=== PATIENT | female | born 1935 | race Caucasian/White ===

== ENCOUNTER → 2017-04-04 | Outpatient (CLI) | payer OTHER | LOC: M.ULTRA 11:00 | DX: I65.23 Occlusion and stenosis of bilateral carotid arteries (principal) ==

== ENCOUNTER → 2017-06-29 | Outpatient (CLI) | payer OTHER | LOC: M.RAD 12:16 | DX: M19.012 Primary osteoarthritis, left shoulder (principal); M19.011 Primary osteoarthritis, right shoulder; Z88.6 Allergy status to analgesic agent; Z88.5 Allergy status to narcotic agent; Z88.8 Allergy status to other drugs, medicaments and biological substances ==

== ENCOUNTER → 2017-09-14 | Outpatient (CLI) | payer OTHER | LOC: M.MRI 15:47 | DX: M75.101 Unspecified rotator cuff tear or rupture of right shoulder, not specified as traumatic (principal); M25.411 Effusion, right shoulder; M75.21 Bicipital tendinitis, right shoulder; G89.29 Other chronic pain; M25.512 Pain in left shoulder ==

== ENCOUNTER → 2019-03-15 | Outpatient (CLI) | payer MEDICARE | LOC: M.RAD 14:24 | DX: S22.31XA Fracture of one rib, right side, initial encounter for closed fracture (principal); S22.040D Wedge compression fracture of fourth thoracic vertebra, subsequent encounter for fracture with routine healing; M48.54XA Collapsed vertebra, not elsewhere classified, thoracic region, initial encounter for fracture; M48.04 Spinal stenosis, thoracic region; M25.78 Osteophyte, vertebrae; Z96.612 Presence of left artificial shoulder joint; X58.XXXA Exposure to other specified factors, initial encounter; Y93.89 Activity, other specified; Y92.89 Other specified places as the place of occurrence of the external cause; Y99.8 Other external cause status ==

== ENCOUNTER 2019-09-08 18:37 | Inpatient (IN) | payer MEDICARE ==
[~2019-09-08] VITALS: Ht 157.5 cm; Wt 73.5 kg
[2019-09-08 18:50] VITALS: BP 129/57
[2019-09-08] MEDS ORDERED: SIMVASTATIN80 MG PO (18:58)
[2019-09-08] MEDS ORDERED: TOPROL XL25 MG PO (18:59)
[2019-09-08] MEDS ORDERED: NORVASC 2.5 MG2.5 M1 PO (18:59)
[2019-09-08] MEDS ORDERED: PROTONIX40 M4 PO (19:00)
[2019-09-08] MEDS ORDERED: ASA81BEC PO (19:00)
[2019-09-08] MEDS ORDERED: TRIAMTERENE/HCT1 CA1 PO (19:00)
[2019-09-08] MEDS ORDERED: COZAAR 25 MG TA25 M2 PO (19:01)
[2019-09-08] MEDS ORDERED: VITAMIN E1000 UNIT PO (19:01)
[2019-09-08] MEDS ORDERED: FISH OIL 1,0001 EAC9 PO (19:01)
[2019-09-08] MEDS ORDERED: OMEGA-3 FLAXS1000 MG PO (19:01)
[2019-09-08] MEDS ORDERED: COQ-10100 MG PO (19:01)
[2019-09-08] MEDS ORDERED: B12 ACTIVE1000 MCG PO (19:02)
[2019-09-08] MEDS ORDERED: BIOTIN1000 MCG PO (19:02)
[2019-09-08 19:07] LABS: URINE BLOOD TRACE (Negative); URINE CLARITY CLEAR; URINE COLOR YELLOW; URINE GLUCOSE-RANDOM NEGATIVE (Negative); URINE KETONES NEGATIVE (Negative); URINE LEUKOCYTES NEGATIVE (Negative); URINE NITRITE NEGATIVE (Negative); URINE PROTEIN NEGATIVE (Negative); URINE UROBILINOGEN 0.2 E.U./dl (0.2-1.0)
[2019-09-08 19:09] LABS: ICTOTEST (BILI CONFIRMATORY) Negative (Negative); URINE BILIRUBIN 1+ (Negative)
[2019-09-08 19:17] LABS: ABSOLUTE BASOPHILS 0.1 thou/uL (0.0-0.2); ABSOLUTE LYMPHOCYTES 1.5 thou/uL (0.8-5.3); ABSOLUTE MONOCYTES 0.8 thou/uL (0.0-1.2); ABSOLUTE NEUTROPHILS 6.5 thou/uL (1.6-8.1); BASOPHILS 1.1 %; EOSINOPHILS 0.5 %; HEMATOCRIT 33.5 % (37.0-47.0); HEMOGLOBIN 11.5 gm/dL (12.0-15.0); LYMPHOCYTES 17.1 %; MCH 31.1 pg (26.0-34.0); MCHC 34.5 g/dL (28.0-37.0); MCV 90.1 fL (80.0-100.0); MONOCYTES 9.1 %; MPV 9.8 fl. (7.2-11.1); NUCLEATED RBCS 0 /100WBC; PLATELET COUNT* 180 thou/uL (150-400); POLYS 72.2 %; RBC 3.71 mil/uL (4.20-5.00); RDW-CV 13.7 % (10.5-14.5)
[2019-09-08 19:25] LABS: CALCIUM 8.7 mg/dL (8.5-10.1); CREATININE 1.1 mg/dL (0.6-1.3); POTASSIUM 4.1 mmol/L (3.5-5.1)
[2019-09-08 19:29] LABS: ALBUMIN 3.7 g/dL (3.4-5.0); TOTAL BILIRUBIN 0.4 mg/dL (<0.1-1.0); TOTAL PROTEIN 7.1 g/dL (6.4-8.2)
[2019-09-08 23:37] VITALS: BP 125/70
[2019-09-09] VITALS: BP 165/54
--- NOTE | 2019-09-09 01:25 | NUR ---
0000: ALERT AND ORIENTED X 4 FEMALE PATIENT TO ROOM 114 BY CART IN STABLE CONDITION. ADMISSION ROUTINES IN PROGRESS. VITAL SIGNS STABLE. HOME MEDICATION LIST UPDATED AND WITH REQUEST FOR TYLENOL PM FOR REST TONIGHT. ORDER WAS RECEIVED. CONTINUE TO MONITOR.
--- NOTE | 2019-09-09 04:09 | NUR ---
PATIENT HAS REMAINED ALERT AND ORIENTED X 4 THROUGHOUT THE SHIFT AND RESTING QUIETLY ON HOURLY ROUNDS. PROVIDED WITH A SLEEP AID AFTER ADMISSION ASSSESSMENT COMPLETE. AT 0330 SHE WAS AWAKE AND STATED IT WAS HELPING. NO REQUIREMENT FOR PAIN OR NAUSEA MEDICATION SINCE ARRIVAL TO UNIT. IVF'S PER ORDER. TAKING SIPS WATER AT BEDSIDE. GI CONSULT THIS AM. OF NOTE SHE STATES SHE HAS NEVER HAD A GI PHYSICIAN ATTEND TO HER AND IS HOPEFUL THERE WILL BE SOME NEW PLANS THAT WILL HELP HER IBS AND NEED FOR LAXATIVES TO HAVE A BM. SHE STATES THE ONLY LAXATIVE THAT HAS WORKED IS EX-LAX. CONTINUE TO MONITOR.
[2019-09-09 07:45] VITALS: BP 135/43
[2019-09-09 15:00] VITALS: BP 134/41
--- NOTE | 2019-09-09 15:27 | NUR ---
SPOKE WITH PT. DAUGHTER,CHET WAS VISITING. CHET DOES NOT LIVE WITH PT. SHE SAID SHE USES MOM'S ADDRESS HER MAILING ADDRESS. PT.SAID SHE LIVES ALONE. NO USE OF DME. SHE IS INDEPENDENT. DRIVES,SHOPS,DOES LAUNDRY,ETC. SHE USED A HH AGENCY AFTER HER KNEE REPLACEMENTS BUT IT WAS AWHILE AGO AND SHE CAN'T REMEMBER NAME OF AGENCY. SHE SAID SHE INTENDS TO GO HOME AT DISCHARGE.
--- NOTE | 2019-09-09 17:37 | NUR ---
PATIENT RESTED IN BED MOST OF THE DAY. SHE HAD HER DAUGHTER HERE MOST OF THE MORNING AND INTO THE EARLY AFTERNOON. SHE HAS NOT HAD ANY COMPLAINTS TODAY. SHE IS ON CLEAR LIQUIDS AND TOLERATES THEM WELL. HER VITAL SIGNS HAVE BEEN STABLE AND HER FLUIDS CONTINUE TO INFUSE INTO THE LEFT AC. SHE DENIES ANY NEEDS OR WANTS AND IS CURRENTLY WATCHING TV. NO DISTRESS TODAY.
[2019-09-09 20:30] VITALS: BP 146/58
[2019-09-10] VITALS (7 sets, daily range): BP systolic 146–168; BP diastolic 53–61
--- NOTE | 2019-09-10 02:50 | NUR ---
0145 PATIENT CALLED FROM ROOM STATING SHE WAS HAVING CHEST PAIN UNDER HER LEFT BREAST AFTER A TRIP TO THE AND FELT LIKE HER HEART WAS RACING. IMMEDIATE AUSCULTATION OF HEART WITH RATE REGULAR AND 74 BMP. PATIENT DENIES ANY RADIATION OF PAIN OR SHORTNESS OF AIR. BP 168/60. EKG COMPLETED WITH RESULTS SINUS RHYTHM. O2 SAT 92-95%. O2 APPLIED AT 1L/MIN. BY THE TIME ASSESSMENT AND EKG COMPLETED PATIENT STATING DISCOMFORT RESOLVED. MESSAGE SENT AND RECEIVED BY DR. CORNELL AT 0226. NO NEW ORDERS. WILL REASSESS WITH 0400 VITAL SIGNS AND UPDATE PHYSICIAN NEEDED. CONTINUE TO MONITOR.
--- NOTE | 2019-09-10 05:32 | NUR ---
PATIENT HAS REMAINED ALERT AND ORIENTED X 4 THROUGHOUT THE SHIFT AND RESTING QUIETLY ON HOURLY ROUNDS. NO FURTHER REPORTS OF DISCOMFORT IN EVENT NOTE EARLIER. FLUIDS AND ANTIBIOTICS PER ORDER. VITAL SIGNS STABLE. HAS DECLINED ALL OFFERS OF PAIN OR NAUSEA MEDICTION. NO BM'S TONIGHT. CONTINUE TO MONITOR.
--- NOTE | 2019-09-10 09:55 | EKG ---
[place] [address] ELECTROCARDIOGRAM REPORT Name: SOLOMON MORFIN Room: [address] ADM IN M.R.#: [id number] Admission: 09/08/19 Attend Phys: Jasmine Gee Discharge: Date of : 31 Date of Service: 09/10/19 0155 Report #: [id number] THIS REPORT FOR: //name// 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1935 Requested By: Simon Woodard Order Number: [id number] Ramiro MD: Klaus Fisher Measurements Intervals [place] Rate: 69 P: 63 WI: 150 QRS: 35 QRSD: 94 T: 5 QT: 392 QTc: 420 Interpretive Statements Sinus rhythm Probable left atrial enlargement Low voltage, precordial leads No previous ECG available for comparison Electronically Signed On 09-10-2019 9:55:30 CDT by Klaus Fisher [email or web address] <ELECTRONICALLY SIGNED> By: Klaus Fisher MD, [facility] 09/10/19 0955 0155 0155 Klaus Fisher MD, [facility] /EPI
--- NOTE | 2019-09-10 13:24 | CON ---
[address] [address] CONSULTATION Name: SOLOMON MORFIN Room: [address] IN .R.#: [id number] Admission: 09/08/19 Attend Phys: Flaca Bobby Discharge: Date of : 31 Report #: [id number] THIS REPORT FOR: //name// cc: Gabriel Loja MD, Dean L. MD ~ THIS REPORT FOR: //name// CC: Gabriel Gee DICTATED BY: Kandis Funez CRYSTAL GAZER DATE OF SERVICE: 09/09/2019 Please note at the time of this dictation, the patient was seen and physically examined by myself. REASON FOR CONSULTATION: Abdominal pain, constipation, diverticulitis. HISTORY OF PRESENT ILLNESS: This is an 84-year-old female who presented to the Emergency Room with worsening of abdominal cramping that started the day of admission. She states she had taken a laxative the day before, which she has to do about every 3 days to have a bowel movement and she states the cramping this time was much more intense than usual. She denies any nausea or vomiting associated with this and she usually takes Ex-Lax for her bowels at this time. She did have some diarrhea prior to coming in from the laxative and then again last night after she was here. The patient states she has tried numerous things in the past including MiraLax and multiple other laxatives. She does admit that she does not drink much water throughout the day. The patient was last seen by us in 2011. She had an EGD. She has a history of some esophagitis and hiatal hernia and in 2010 was her last colonoscopy, noting diverticulosis in the sigmoid colon and some hemorrhoids. ALLERGIES: No known drug allergies. MEDICATIONS: From home include simvastatin, amlodipine, metoprolol, pantoprazole, hydrochlorothiazide/triamterene, aspirin, losartan, vitamin E, Coenzyme Q10, flaxseed, fish oil, B12 and biotin. PAST MEDICAL HISTORY: Hypertension, GERD, and high cholesterol. PAST SURGICAL HISTORY: Left shoulder repair. FAMILY HISTORY: Negative for any GI [place] [address] CONSULTATION Name: SOLOMON MORFIN Rita Room: [address]#: [id number] Admission: 09/08/19 Attend Phys: Flaca Bobby Discharge: Date of : 31 Report #: [id number] SOCIAL HISTORY: Denies any tobacco or alcohol use. REVIEW OF SYSTEMS: Twelve-point review of systems is essentially negative except what is mentioned in the HPI. PHYSICAL EXAMINATION: VITAL SIGNS: Temperature 36.7, pulse 57, respirations 18, blood pressure 135/43. HEART: Regular rate and rhythm. LUNGS: Clear. ABDOMEN: Soft, positive bowel sounds in all 4 quadrants with some tenderness noted in the lower abdominal region, both left and right. LABORATORY DATA: Labs reveal hemoglobin 11.5, white count is 9, and platelet is 480. GFR is 47. CT showed thickening of the distal descending colon with pericolic fat and inflammation noted. IMPRESSION: 1. Abdominal pain. 2. Constipation. 3. Diverticulitis. 4. Chronic kidney disease. PLAN: 1. Continue her antibiotics and Flagyl. 2. Senna 2 tablets b.i.d. 3. Increase her oral intake of fluids. 4. We will await results of above. Thank you for allowing us to participate in this patient's care. Please do not hesitate to call with any questions in regard to this consult. Agree with above assessment and plan by Kandis Funez. Iron Wetzel MD <ELECTRONICALLY SIGNED> By: Iron Wetzel MD 09/10/19 1324 1103 1130Iron Wetzel MD /nt
--- NOTE | 2019-09-10 17:22 | NUR ---
PATIENT VISITED MOST OF THE DAY WITH HER DAUGHTER. SHE WAS UP AD HARPREET IN THE ROOM AND DENIED PAIN ALL DAY. SHE HAD HER DIET ADVANCED THIS PM AND TOLERATED IT WELL. I DID RESTART HER IV IN THE RIGHT HAND WITH A 20G BECAUSE THE OTHER ONE WAS LEAKING. SHE TOLERATED VERY WELL. HER ANTIBIOTICS WERE ADMINISTERED ORDERED TODAY. SHE WILL BE GOING HOME TOMORROW AND IS VERY HAPPY ABOUT THAT. NO DISTRESS NOTED TODAY. DENIES ANY NEEDS OR WANTS AT THIS TIME.
--- NOTE | 2019-09-11 04:33 | NUR ---
PT A&OX4, ON ROOM AIR, UP AD HARPREET, VSS, IV FLUIDS INFUSING ORDERED. PAIN MED REQUESTED AND GIVEN ORDERED. PT SLEEPING WELL. ASSESSMENTS AND HOURLY ROUNDINGS COMPLETE, WILL CONTINUE WITH PLAN OF CARE.
[2019-09-11 07:50] VITALS: BP 170/54
[2019-09-11] MEDS ORDERED: FLAGYL500 M1 PO (10:29)
[2019-09-11] MEDS ORDERED: CIPRO500 MG PO (10:29)
[2019-09-11] MEDS ORDERED: SENOKOT-S1 TA2 PO (11:11)
--- NOTE | 2019-09-11 12:06 | NUR ---
PATIENT DISCHARGED TO HOME AT THIS TIME. IV ABX INFUSED PRIOR TO DISCHARGE. IV DC'D. UP AD HARPREET. SEEN BY GI AND OK TO DC HOME. PATIENT TAKEN OUT VIA WHEELCHAIR WITH ALL BELONGINGS.
== END 2019-09-11 12:07 | disposition home or self-care (01) | DRG 392 ==
LOC: M.ERS 18:37 → M.TBA-ER 22:37 → M.ORTHSURG 22:37
PROVIDERS: Nurse Practitioner Family; ADMIT Internal Medicine; ATTEND Internal Medicine
DX: K57.92 Diverticulitis of intestine, part unspecified, without perforation or abscess without bleeding (principal); E87.1 Hypo-osmolality and hyponatremia; K58.1 Irritable bowel syndrome with constipation; K21.9 Gastro-esophageal reflux disease without esophagitis; E78.00 Pure hypercholesterolemia, unspecified; I12.9 Hypertensive chronic kidney disease with stage 1 through stage 4 chronic kidney disease, or unspecified chronic kidney disease; N18.9 Chronic kidney disease, unspecified; Z96.653 Presence of artificial knee joint, bilateral; E78.5 Hyperlipidemia, unspecified; Z79.899 Other long term (current) drug therapy; Z79.82 Long term (current) use of aspirin; Z03.818 Encounter for observation for suspected exposure to other biological agents ruled out

== ENCOUNTER 2019-10-02 03:45 | Emergency (ER) | payer MEDICARE ==
[~2019-10-02] VITALS: Ht 157.5 cm; Wt 72.6 kg
[~2019-10-02 03:45] MED LIST: ASA81BEC PO; B12 ACTIVE1000 MCG PO; BIOTIN1000 MCG PO; CIPRO500 MG PO; COQ-10100 MG PO; COZAAR 25 MG TA25 M2 PO; FISH OIL 1,0001 EAC9 PO; FLAGYL500 M1 PO; NORVASC 2.5 MG2.5 M1 PO; OMEGA-3 FLAXS1000 MG PO; PROTONIX40 M4 PO; SENOKOT-S1 TA2 PO; SIMVASTATIN80 MG PO; TOPROL XL25 MG PO; TRIAMTERENE/HCT1 CA1 PO; VITAMIN E1000 UNIT PO
[2019-10-02] MEDS ORDERED: DIFLUCAN150 MG PO (04:20)
[2019-10-02 04:35] VITALS: BP 142/68
== END 2019-10-02 04:35 | disposition home or self-care (01) ==
LOC: M.ERS 03:45
DX: B37.0 Candidal stomatitis (principal); K58.9 Irritable bowel syndrome, unspecified; Z96.653 Presence of artificial knee joint, bilateral

== ENCOUNTER 2020-06-15 09:33 | Observation (INO) | payer MEDICARE ==
[~2020-06-15] VITALS: Ht 165.1 cm; Wt 71.2 kg
[~2020-06-15 09:33] MED LIST changes: +DIFLUCAN150 MG PO
[2020-06-15 09:41] VITALS: BP 143/48
[2020-06-15 10:04] LABS: ABSOLUTE BASOPHILS 0.1 thou/uL (0.0-0.2); ABSOLUTE EOSINOPHILS 0.1 thou/uL (0.0-0.7); ABSOLUTE LYMPHOCYTES 1.9 thou/uL (0.8-5.3); ABSOLUTE MONOCYTES 0.5 thou/uL (0.0-1.2); ABSOLUTE NEUTROPHILS 1.9 thou/uL (1.6-8.1); BASOPHILS 1.5 %; EOSINOPHILS 1.1 %; HEMATOCRIT 37.7 % (37.0-47.0); HEMOGLOBIN 12.6 gm/dL (12.0-15.0); LYMPHOCYTES 42.7 %; MCH 30.6 pg (26.0-34.0); MCHC 33.5 g/dL (28.0-37.0); MCV 91.5 fL (80.0-100.0); MONOCYTES 11.2 %; MPV 9.2 fl. (7.2-11.1); NUCLEATED RBCS 0 /100WBC; PLATELET COUNT* 165 thou/uL (150-400); POLYS 43.5 %; RBC 4.12 mil/uL (4.20-5.00); RDW-CV 13.8 % (10.5-14.5); WBC 4.5 thou/uL (4.0-11.0)
[2020-06-15 10:16] LABS: CREATININE 1.2 mg/dL (0.6-1.3); POTASSIUM 3.9 mmol/L (3.5-5.1)
[2020-06-15 10:26] LABS: APTT 26.2 Seconds (25.0-31.3); PROTIME 10.3 Seconds (9.20-11.50)
[2020-06-15 10:31] LABS: TOTAL BILIRUBIN 0.5 mg/dL (<0.1-1.0); TOTAL PROTEIN 7.4 g/dL (6.4-8.2)
--- NOTE | 2020-06-15 11:26 | EKG ---
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
[2020-06-15 12:10] VITALS: BP 146/53
[2020-06-15 12:22] VITALS: BP 162/66
[2020-06-15 12:40] VITALS: BP 162/66
[2020-06-15 15:00] VITALS: BP 135/48
--- NOTE | 2020-06-15 16:10 | NUR ---
PT ADMITTED TO ROOM 213 FROM ED WITH VENTRICULAR BIGEMINY AND SYNCOPE. PT REPORTS THAT SHE HAS HAD EPISODES AT HOME WHERE SHE WILL BECOME DIZZY DURING ACTIVITIES.PT IS ORTHOSTATIC POSITIVE.AOX4,ABLE TO ANSWER QUESTIONS APPROPRIATELY. OTHERWISE STABLE ON RA. TRIGEMINY/BIGEMINY ON MONITOR.CARDIOLOGY CONSULTED. PT ORIENTED TO PLAN OF CARE,TREATMENTS,ACTIVITY,DIET AND FALL PRECAUTIONS. NOTHING FURTHER.CLWR.WCTM
[2020-06-16 00:34] VITALS: BP 145/57
[2020-06-16 04:58] VITALS: BP 121/50
[2020-06-16 06:01] LABS: HEMOGLOBIN 11.5 gm/dL (12.0-15.0); MCH 30.8 pg (26.0-34.0); MCHC 33.9 g/dL (28.0-37.0); MCV 90.9 fL (80.0-100.0); MPV 9.3 fl. (7.2-11.1); RBC 3.74 mil/uL (4.20-5.00); RDW-CV 13.4 % (10.5-14.5); WBC 4.4 thou/uL (4.0-11.0)
[2020-06-16 06:19] LABS: ANION GAP 8 mmol/L (7-16); BUN 16 mg/dL (7-18); CALCIUM 9.3 mg/dL (8.5-10.1); CHLORIDE 97 mmol/L (98-107); CHOLESTEROL 187 mg/dL (<200); CO2 26 mmol/L (21-32); CREATININE 0.8 mg/dL (0.6-1.3); GLUCOSE 100 mg/dL (70-99); HDL CHOLESTEROL 98 mg/dL (>40); LDL CHOLESTEROL 79 mg/dL (<100); POTASSIUM 3.6 mmol/L (3.5-5.1); SODIUM 131 mmol/L (136-145); TC:HDL 1.9 Ratio (Not establshd); TRIGLYCERIDE 52 mg/dL (<150); VLDL 10 mg/dL (<40)
[2020-06-16 06:20] LABS: SERUM ASSESSMENT Clear
--- NOTE | 2020-06-16 06:28 | NUR ---
NO ACUTE CHANGES THROUGHOUT SHIFT. SEE CHARTING FOR DETAILS.
--- NOTE | 2020-06-16 07:10 | NUR ---
CHANGE OF SHIFT, BEDSIDE REPORT GIVEN PATIENT SEEN AT BEDSIDE, IN BED RESTING ASSUMED PATIENT CARE
[2020-06-16 08:00] VITALS: BP 103/46
--- NOTE | 2020-06-16 12:55 | 2DMMODE ---
[place] [address] 2 D/M-MODE ECHOCARDIOGRAM Name: MORFINSOLOMON Jackman Rita Room: [address] M.R.#: [id number] Admission: 06/15/20 Attend Phys: Kristin Gaxiola MD Discharge: Date of : 31 Date of Service: 06/16/20 1254 Report #: [id number] THIS REPORT FOR: cc: Gabriel Loja MD, Dean L. MD Liston, Michael J. MD [facility] ~ APPROVED REPORT Study performed: 06/16/2020 10:38:50 EXAM: Comprehensive 2D, Doppler, and color-flow Echocardiogram Patient Location: In-Patient Room #: [facility] Status: routine BSA: 1.76 HR: 63 bpm BP: 103/46 mmHg Rhythm: NSR Other Information Study Quality: Good Indications Abnormal ECG 2D Dimensions IVSd: 9.56 (7-11mm) LVOT Diam: 19.49 (18-24mm) LVDd: 43.68 mm PWd: 8.62 (7-11mm) Ascending Ao: 27.28 (22-36mm) LVDs: 23.19 (25-40mm) Aortic Root: 29.03 mm Volumes Left Atrial Volume (Systole) LA ESV Index: 29.40 mL/m2 Aortic Valve AoV Peak Zeferino.: 1.60 m/s AO Peak Gr.: 10.25 mmHg LVOT Max P.25 mmHg AO Mean Gr.: 5.70 mmHg LVOT Mean P.68 mmHg LVOT Max V: 1.25 m/s AO V2 VTI: 35.41 cm LVOT Mean V: 0.73 m/s ELSIE (VTI): 2.37 cm2 LVOT V1 VTI: 28.16 [place] [address] 2 D/M-MODE ECHOCARDIOGRAM Name: SOLOMON MORFIN Room: [address] M.R.#: [id number] Admission: 06/15/20 Attend Phys: Kristin Gaxiola MD Discharge: Date of : 31 Date of Service: 06/16/20 1254 Report #: [id number] Mitral Valve E/A Ratio: 0.60 MV Decel. Time: 203.05 ms MV E Max Zeferino.: 0.85 m/s MV PHT: 58.88 ms MVA (PHT): 3.74 cm2 TDI E/Lateral E': 10.63 E/Medial E': 10.63 Medial E' Zeferino.: 0.08 m/s Lateral E' Zeferino.: 0.08 m/s Pulmonary Valve PV Peak Zeferino.: 1.08 m/s PV Peak Gr.: 4.67 mmHg Tricuspid Valve RAP Estimate: 5.00 mmHg TR Peak Gr.: 42.07 mmHg RVSP: 47.00 mmHg PA Pressure: 47.00 mmHg Left Ventricle The left ventricle is normal size. There is normal LV segmental wall motion. There is normal left ventricular wall thickness. Left ventricular systolic function is normal. LVEF is 65-70%. Transmitral Doppler flow pattern suggests impaired LV relaxation. Right Ventricle The right ventricle is normal size. The right ventricular systolic function is normal. Atria The left atrium size is normal. The right atrium size is normal. Aortic Valve The aortic valve is normal in structure. No aortic regurgitation is present. There is no aortic valvular stenosis. Mitral Valve The mitral valve is normal in structure. Trace mitral regurgitation. No evidence of mitral valve stenosis. Tricuspid Valve The tricuspid valve is normal in structure. Mild tricuspid regurgitation. The RVSP is 45-[place] [address] 2 D/M-MODE ECHOCARDIOGRAM Name: SOLOMON MORFIN Room: [address]#: [id number] Admission: 06/15/20 Attend Phys: Kristin Gaxiola MD Discharge: Date of : 31 Date of Service: 06/16/20 1254 Report #: [id number] Pulmonic Valve The pulmonary valve is normal in structure. There is no pulmonic valvular regurgitation. Great Vessels The aortic root is normal in size. IVC is normal in size and collapses >50% with inspiration. Pericardium There is no pericardial effusion. <Conclusion> The left ventricle is normal size. There is normal left ventricular wall thickness. Left ventricular systolic function is normal. LVEF is 65-70%. Transmitral Doppler flow pattern suggests impaired LV relaxation. Trace mitral regurgitation. Mild tricuspid regurgitation. The RVSP is 45-50 mmHg. IVC is normal in size and collapses >50% with inspiration. <ELECTRONICALLY SIGNED> By: Zoltan Stone MD, FACC 06/16/20 1254 1254 1254 Zoltan Stone MD, FACC /INF
--- NOTE | 2020-06-16 13:38 | CON ---
[address] [address] CONSULTATION Name: SOLOMON MORFIN Room: [address] Meena Bernabe#: [id number] Admission: 06/15/20 Attend Phys: Kristin Gaxiola MD Discharge: Date of : 31 Report #: [id number] THIS REPORT FOR: cc: Gabriel Loja MD, Dean L. MD Blick,Klaus Aleman MD [facility] ~ DATE OF SERVICE: 06/15/2020 CARDIOLOGY CONSULTATION HISTORY OF PRESENT ILLNESS: The patient is an 84-year-old single white female who I was asked to see in the hospital today after she complained of lightheadedness and palpitations. The patient has no previous history of heart disease. She does state that I actually saw her in the Cardiology Clinic prior to shoulder surgery in the past. She apparently had a stress test that showed no evidence of heart disease. She denies a history of a myocardial infarction or chest pain. She stays very active and denies a history of exertional dyspnea. Recently, however, she notes her heart will race. It will skip beats. It feels like it is beating fast. She also notes she has had lightheaded spells. She feels dizzy as if she is going to fall. She has to hold on to things. She denied any syncope or heart murmur. She finally came to the hospital today and is admitted for further evaluation and treatment. PAST MEDICAL HISTORY: He has had previous knee surgery, shoulder surgery, hernia repair. She has a history of hypertension, hyperlipidemia. No diabetes. CURRENT MEDICATIONS: Include simvastatin, amlodipine, metoprolol, Protonix, Dyazide, aspirin. ALLERGIES: SHE HAS A PREVIOUS INTOLERANCE TO MORPHINE. FAMILY HISTORY: Brother had a pacemaker. SOCIAL HISTORY: She is single, lives by herself here in [place]. No smoking or alcohol abuse. REVIEW OF SYSTEMS: No history of stroke, asthma, liver disease, kidney disease, cancer, psychiatric illness, chronic skin condition. PHYSICAL EXAMINATION: GENERAL: Elderly, frail-appearing female, lying in bed. She appeared in no distress. VITAL SIGNS: She had a blood pressure of 140/60, pulse 70. On standing blood pressure dropped to 80 systolic[place] [address] CONSULTATION Name: SOLOMON MORFIN Rita Room: [address]#: [id number] Admission: 06/15/20 Attend Phys: Kristin Gaxiola MD Discharge: Date of : 31 Report #: [id number] HEENT: She is anicteric. Conjunctivae pink. Mucous membranes moist. NECK: Veins do not appear distended. No carotid bruits. Neck supple. CHEST: Clear to auscultation. CARDIOVASCULAR: Regular rate and rhythm without murmur. ABDOMEN: Soft. EXTREMITIES: Had no edema. Dorsalis pedis pulse 3+. SKIN: Cool and dry. NEUROLOGIC: Nonfocal. RADIOLOGICAL DATA: ECG showed a sinus rhythm, PVCs in a pattern of trigeminy, nonspecific ST-segment changes. Her workup, she actually had a nuclear stress test back in 2011 here at [place] that showed possible apical ischemia versus breast attenuation. Ejection fraction of 62%. She had a Holter monitor in 2011 and she was noted to have multiple PVCs and PACs. The patient had a portable chest x-ray in the Emergency Room today that showed a breast shadow otherwise unremarkable. Carotid Doppler study in 2018 here at [place] [facility] showed plaquing, but no significant stenosis. LABORATORY WORK: Sodium 134, potassium 3.9, creatinine 1.2. Her liver function studies were normal. Troponins all less than 0.06. TSH 2.3. BNP 227. White blood cell count 4.5, hemoglobin 12.6. COVID antigen test was negative. IMPRESSION AND RECOMMENDATIONS: 1. Palpitations. Possibly related premature ventricular contractions. Recommend discharging with an event recorder. 2. Premature ventricular contractions. I would check echocardiogram. The patient is on a beta-sarah. 3. Dizziness. Possibly related to orthostasis. I would recommend that she avoid dehydration. 4. Hypertension. The patient is on a calcium sarah, beta-sarah, diuretic and angiotensin receptor sarah. 5. Hyperlipidemia. The patient is on a statin drug. <ELECTRONICALLY SIGNED> By: Klaus Fisher MD, FACC 06/16/20 1338 1635 [id number] Fisher MD, FACC /nt
[2020-06-16 13:42] VITALS: BP 118/59
--- NOTE | 2020-06-16 14:53 | NUR ---
Pt is A&O. Resides at home alone. Active and independent. No DME. No hx of HH or SNF. Goal is home at dc. Plan US today. Anticipate dc to home tomorrow, no needs anticipated.
[2020-06-16 15:49] VITALS: BP 123/54
[2020-06-16 20:00] VITALS: BP 150/57
[2020-06-17] VITALS: BP 130/98
[2020-06-17 04:00] VITALS: BP 120/41
[2020-06-17 06:19] LABS: HEMATOCRIT 33.2 % (37.0-47.0); HEMOGLOBIN 11.4 gm/dL (12.0-15.0); MCH 30.8 pg (26.0-34.0); MCHC 34.3 g/dL (28.0-37.0); MCV 89.8 fL (80.0-100.0); MPV 8.9 fl. (7.2-11.1); RBC 3.7 mil/uL (4.20-5.00); RDW-CV 13.3 % (10.5-14.5)
[2020-06-17 06:23] LABS: CALCIUM 9.3 mg/dL (8.5-10.1); CREATININE 0.7 mg/dL (0.6-1.3); POTASSIUM 3.8 mmol/L (3.5-5.1)
[2020-06-17 07:51] VITALS: BP 150/55
[2020-06-17 10:12] VITALS: BP 147/48
[2020-06-17 11:38] VITALS: BP 147/48
--- NOTE | 2020-06-17 12:05 | NUR ---
PT DCD TO HOME IN STABLE CONDITION. REVIEWED MONITOR,FOLLOW UP APPOINTMENTS,DIET,ACTIVITY AND BLOOD PRESSURE MONITORING WITH PT. PT REPORTED UNDERSTANDING WITHOUT FURTHER QUESTIONS. PT TAKE TO SON'S VEHICLE VIA WC ACCOMPANIED BY NURSING STAFF WITH ALL OF BELONGINGS.
== END 2020-06-17 12:00 | disposition home or self-care (01) ==
LOC: M.ERS 09:33 → M.TBA-ER 10:50 → M.2W 10:50
PROVIDERS: Emergency Medicine Emergency Medical Services; ADMIT Family Medicine; ATTEND Family Medicine
DX: I95.1 Orthostatic hypotension (principal); R42 Dizziness and giddiness; E87.1 Hypo-osmolality and hyponatremia; Z20.822 Contact with and (suspected) exposure to COVID-19; I49.9 Cardiac arrhythmia, unspecified; R00.2 Palpitations; R00.8 Other abnormalities of heart beat; I49.3 Ventricular premature depolarization; Z87.19 Personal history of other diseases of the digestive system; Z79.82 Long term (current) use of aspirin; Z79.899 Other long term (current) drug therapy

== ENCOUNTER 2020-06-28 11:13 | Emergency (ER) | payer MEDICARE ==
[~2020-06-28] VITALS: Ht 157.5 cm; Wt 71.7 kg
[2020-06-28 11:57] LABS: ABSOLUTE BASOPHILS 0.1 thou/uL (0.0-0.2); ABSOLUTE EOSINOPHILS 0.1 thou/uL (0.0-0.7); ABSOLUTE LYMPHOCYTES 1.8 thou/uL (0.8-5.3); ABSOLUTE MONOCYTES 0.8 thou/uL (0.0-1.2); ABSOLUTE NEUTROPHILS 2.9 thou/uL (1.6-8.1); BASOPHILS 1.2 %; EOSINOPHILS 1.6 %; HEMATOCRIT 32.3 % (37.0-47.0); HEMOGLOBIN 10.8 gm/dL (12.0-15.0); LYMPHOCYTES 30.7 %; MCH 30.5 pg (26.0-34.0); MCHC 33.3 g/dL (28.0-37.0); MCV 91.5 fL (80.0-100.0); MONOCYTES 14.8 %; MPV 9.1 fl. (7.2-11.1); NUCLEATED RBCS 0 /100WBC; PLATELET COUNT* 165 thou/uL (150-400); POLYS 51.7 %; RBC 3.53 mil/uL (4.20-5.00); RDW-CV 13.6 % (10.5-14.5); WBC 5.7 thou/uL (4.0-11.0)
[2020-06-28 12:07] LABS: CALCIUM 8.9 mg/dL (8.5-10.1); CREATININE 0.8 mg/dL (0.6-1.3); POTASSIUM 4.3 mmol/L (3.5-5.1)
[2020-06-28 12:26] LABS: INFLUENZA A ANTIGEN Negative (Negative); INFLUENZA B ANTIGEN Negative (Negative)
[2020-06-28 13:03] VITALS: BP 122/57
--- NOTE | 2020-06-29 11:12 | EKG ---
[place] [address] ELECTROCARDIOGRAM REPORT Name: SOLOMON MORFIN Room: [facility]#: [id number] Admission: 06/28/20 Attend Phys: Discharge: 06/28/20 Date of : 31 Date of Service: 06/28/20 1151 Report #: [id number] THIS REPORT FOR: //name// 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1935 Requested By: Boubacar Napier Order Number: [id number] MD: Klaus Fisher Measurements Intervals [place] Rate: 64 P: 62 VA: 139 QRS: 38 QRSD: 93 T: 28 QT: 402 QTc: 415 Interpretive Statements Sinus rhythm Ventricular premature complex Compared to ECG 06/15/2020 09:41:19 No significant changes Electronically Signed On 06-29-2020 11:12:26 CDT by Klaus Fisher [email or web address] <ELECTRONICALLY SIGNED> By: Klaus Fisher MD, [facility] 06/29/20 1112 1151 1151 Klaus Fisher MD, [facility] /EPI
== END 2020-06-28 13:05 | disposition home or self-care (01) ==
LOC: M.ERS 11:13
PROVIDERS: Nurse Practitioner Psychiatric/Mental Health
DX: R05 Cough (principal); Z20.822 Contact with and (suspected) exposure to COVID-19; K58.9 Irritable bowel syndrome, unspecified; I10 Essential (primary) hypertension; E78.00 Pure hypercholesterolemia, unspecified; Z88.5 Allergy status to narcotic agent; Z96.653 Presence of artificial knee joint, bilateral

== ENCOUNTER 2020-10-26 08:54 | Emergency (ER) | payer MEDICARE ==
[~2020-10-26] VITALS: Ht 157.5 cm; Wt 72.6 kg
[2020-10-26] MEDS ORDERED: MOBIC7.5 MG PO (10:08)
[2020-10-26 10:09] VITALS: BP 116/55
== END 2020-10-26 10:11 | disposition home or self-care (01) ==
LOC: M.ERS 08:54
DX: M26.602 Left temporomandibular joint disorder, unspecified (principal); I10 Essential (primary) hypertension; E78.00 Pure hypercholesterolemia, unspecified; Z98.890 Other specified postprocedural states; Z79.82 Long term (current) use of aspirin; Z79.891 Long term (current) use of opiate analgesic; Z79.899 Other long term (current) drug therapy; Z88.5 Allergy status to narcotic agent

== ENCOUNTER → 2020-10-28 | Outpatient (CLI) | payer MEDICARE ==
[~2020-10-28] MED LIST changes: +APAP W/CODEINE1 TA2 PO; +CEPHALEXIN500 MG PO; +LIDOCAINE VISC100 ML SWISH&SPIT; +MOBIC7.5 MG PO; +VALACYCLOVIR1000 MG PO
== END ==
LOC: M.LAB 14:59 → M.RAD 14:59
PROVIDERS: ATTEND Internal Medicine
DX: S03.02XA Dislocation of jaw, left side, initial encounter (principal); M47.812 Spondylosis without myelopathy or radiculopathy, cervical region; X58.XXXA Exposure to other specified factors, initial encounter; Y93.89 Activity, other specified; Y92.89 Other specified places as the place of occurrence of the external cause; Y99.8 Other external cause status

== ENCOUNTER 2020-10-29 09:46 | Emergency (ER) | payer MEDICARE ==
[~2020-10-29] VITALS: Ht 157.5 cm; Wt 71.7 kg
[~2020-10-29 09:46] MED LIST changes: -APAP W/CODEINE1 TA2 PO; -CEPHALEXIN500 MG PO; -LIDOCAINE VISC100 ML SWISH&SPIT; -VALACYCLOVIR1000 MG PO
[2020-10-29] MEDS ORDERED: CEPHALEXIN500 MG PO (12:41)
[2020-10-29] MEDS ORDERED: APAP W/CODEINE1 TA2 PO (12:41)
[2020-10-29] MEDS ORDERED: LIDOCAINE VISC100 ML SWISH&SPIT (12:41)
[2020-10-29] MEDS ORDERED: VALACYCLOVIR1000 MG PO (12:41)
[2020-10-29 13:03] VITALS: BP 141/70
== END 2020-10-29 13:04 | disposition home or self-care (01) ==
LOC: M.ERS 09:46
DX: B02.9 Zoster without complications (principal); L03.211 Cellulitis of face; I10 Essential (primary) hypertension; E78.00 Pure hypercholesterolemia, unspecified; Z98.890 Other specified postprocedural states; Z96.653 Presence of artificial knee joint, bilateral; Z79.899 Other long term (current) drug therapy; Z79.82 Long term (current) use of aspirin; Z88.5 Allergy status to narcotic agent

== ENCOUNTER 2021-04-24 15:20 | Emergency (ER) | payer BC ==
[~2021-04-24] VITALS: Ht 157.5 cm; Wt 72.6 kg
[~2021-04-24 15:20] MED LIST changes: +APAP W/CODEINE1 TA2 PO; +CEPHALEXIN500 MG PO; +LIDOCAINE VISC100 ML SWISH&SPIT; +VALACYCLOVIR1000 MG PO
[2021-04-24] MEDS ORDERED: HYDROCODON-ACE1 EAC7 PO (18:04)
[2021-04-24] MEDS ORDERED: COLACE100 MG PO (18:07)
[2021-04-24 18:23] VITALS: BP 179/68
== END 2021-04-24 18:23 | disposition home or self-care (01) ==
LOC: M.ERS 15:20
DX: S22.080A Wedge compression fracture of T11-T12 vertebra, initial encounter for closed fracture (principal); I10 Essential (primary) hypertension; E78.00 Pure hypercholesterolemia, unspecified; Z79.899 Other long term (current) drug therapy; Z88.5 Allergy status to narcotic agent; W19.XXXA Unspecified fall, initial encounter; Y93.89 Activity, other specified; Y92.89 Other specified places as the place of occurrence of the external cause; Y99.8 Other external cause status